=== PATIENT | male | born 1950 | race Caucasian/White ===

== ENCOUNTER 2016-06-25 10:23 | Inpatient (IN) | payer MEDICARE, OTHER ==
[2016-06-25] MEDS ORDERED: DILTIAZEM HCL INJ 25 MG/5 ML VIAL IV ONE ×3 (10:46→21:01)
--- NOTE | 2016-06-25 10:53 | ER Document Report ---
ED General - General Stated Complaint: BLOOD PRESSURE ISSUES Time Seen by Provider: 06/25/16 10:33 Mode of Arrival: Ambulatory Information source: Patient, Relative, DrShalonda Office Notes: 65 yr old male hx of htn presents with complaints of intermittent 3 week duration of palpitations and sob. pt denies any fevers or chills, admits he had productive cough initially. TRAVEL OUTSIDE OF THE [place] IN LAST 30 DAYS: No - HPI Onset: Other Onset/Duration: Intermittent Quality of pain: No pain Severity: Mild Pain Level: 1 Associated symptoms: Productive cough, Shortness of breath Exacerbated by: Walking Relieved by: Denies Similar symptoms previously: No Recently seen / treated by doctor: Yes - sent in by pcp - Related Data Allergies/Adverse Reactions: No Known Drug Allergies Allergy (Verified 04/10/13 12:00) Past Medical History - Social History Smoking Status: Never Smoker Cigarette use (# per day): No Chew tobacco use (# tins/day): No Smoking Education Provided: No Family History: None - Past Medical History Cardiac Medical History: Reports: Hx Hypertension - "CONTROLLED" Denies: Hx Coronary Artery Disease, Hx Heart Attack Pulmonary Medical History: Denies: Hx Asthma, Hx Bronchitis, Hx COPD, Hx Pneumonia Neurological Medical History: Denies: Hx Cerebrovascular Accident, Hx Seizures Endocrine Medical History: Reports: Hx Diabetes Mellitus Type 2 GI Medical History: Reports: Hx Gastroesophageal Reflux Disease Musculoskeltal Medical History: Denies Hx Arthritis Past Surgical History: Reports: Hx Orthopedic Surgery - bilat knee repair - Immunizations Hx Diphtheria, Pertussis, Tetanus Vaccination: Yes Review of Systems - Review of Systems Notes: PHYSICAL EXAMINATION: GENERAL: Well-appearing, well-nourished and in no acute distress. HEAD: Atraumatic, normocephalic. EYES: Pupils equal round and reactive to light, extraocular movements intact, sclera anicteric, conjunctiva are normal. ENT: Nares patent, oropharynx clear without exudates. Moist mucous membranes. NECK: Normal range of motion, supple without lymphadenopathy LUNGS: Breath sounds clear to auscultation bilaterally and equal. No wheezes rales or rhonchi. HEART: Tachycardic irregular rate and rhythm ABDOMEN: Soft, nontender, nondistended abdomen. No guarding, no rebound. No masses appreciated. Musculoskeletal: Normal range of motion, no pitting or edema. No cyanosis. NEUROLOGICAL: Cranial nerves grossly intact. Normal speech, normal gait. Normal sensory, motor exams PSYCH: Normal mood, normal affect. SKIN: Warm, Dry, normal turgor, no rashes or lesions noted. Physical Exam - Vital signs Vitals: Resp Pulse Ox 19 96 06/25/16 10:51 06/25/16 10:51 Course - Re-evaluation Re-evalutation: 06/25/16 10:52 Patient is currently in A. fib intermittently between 140s down to 90s, Cardizem bolus drip ordered a spoke with patient's primary care physician regarding admission here 06/25/16 11:38 pt hr controlled at 82, will admit to hospitalist service 06/25/16 12:08 - Vital Signs Vital signs: Temp Pulse Resp BP Pulse Ox 22 H 104/88 H 96 06/25/16 13:01 06/25/16 13:00 06/25/16 13:01 - Laboratory Result Diagrams: 06/25/16 10:50 06/25/16 10:50 Laboratory results interpreted by me: 06/25/16 06/25/16 10:50 10:50 RDW 14.9 H Sodium 145.5 H BUN 26 H Glucose 141 H Total Bilirubin 1.5 H Direct Bilirubin 0.9 H Alkaline Phosphatase 163 H - EKG Interpretation by Tn EKG shows normal: Sinus rhythm, [place], Intervals, QRS Complexes Rate: Tachycardia Rhythm: A.Fib Critical Care Note - Critical Care Note Total time excluding time spent on procedures (mins): 34 Comments: 34 minutes of critical care time spent in direct contact evaluating and reevaluating the patient, treating symptoms, reviewing labs and studies and speaking with family and consultants excluding any procedures Discharge - Discharge Clinical Impression: Atrial fibrillation with rapid ventricular response, Pleural effusion, Shortness of breath Condition: Stable Disposition: HOME, SELF-CARE Admitting Provider: Hospitalist Unit Admitted: [facility]
[2016-06-25] MEDS: DILTIAZEM HCL/D5W 125 ML IV PRN ×2 (11:10→21:58)
[2016-06-25 11:21] LABS: ABSOLUTE EOSINOPHILS # (AUTO) 0.1 10^3/uL (0.0-0.6); ABSOLUTE MONOCYTES (AUTO) 0.5 10^3/uL (0.1-1.4); ABSOLUTE NEUT (AUTO) 3.5 10^3/uL (1.7-8.2); BASOPHILS % (AUTO) 0.8 % (0-2); EOSINOPHILS % (AUTO) 2.2 % (0-6); HEMATOCRIT 43.6 % (37.9-51.0); HEMOGLOBIN 14.2 g/dL (13.5-17.0); LYMPHOCYTES % (AUTO) 19.9 % (13-45); MEAN CORPUSCULAR HEMOGLOBIN 30.9 pg (27.0-33.4); MEAN CORPUSCULAR HGB CONC 32.5 g/dL (32.0-36.0); MEAN CORPUSCULAR VOLUME 95 fl (80-97); MONOCYTES % (AUTO) 9.4 % (3-13); RED BLOOD COUNT 4.59 10^6/uL (4.35-5.55); RED CELL DISTRIBUTION WIDTH 14.9 % (11.5-14.0); SEGMENTED NEUTROPHILS % (AUTO) 67.7 % (42-78); WHITE BLOOD COUNT 5.2 10^3/uL (4.0-10.5)
[2016-06-25] MEDS ORDERED: NORMAL SALINE 1000 ML 1,000 ML IV ONE (11:28)
[2016-06-25 11:40] LABS: ALANINE AMINOTRANSFERASE 27 U/L (21-72); ALBUMIN 4.4 g/dL (3.5-5.0); ALKALINE PHOSPHATASE 163 U/L (38-126); ANION GAP 12 (5-19); ASPARTATE AMINO TRANSFERASE 34 U/L (17-59); BILIRUBIN,DIRECT 0.9 mg/dL (0.0-0.4); BILIRUBIN,TOTAL 1.5 mg/dL (0.2-1.3); BLOOD UREA NITROGEN 26 mg/dL (7-20); CALCIUM 9.9 mg/dL (8.4-10.2); CARBON DIOXIDE 28 mmol/L (22-30); CHLORIDE 106 mmol/L (98-107); CREATINE KINASE 83 U/L (55-170); GLUCOSE 141 mg/dL (75-110); SODIUM 145.5 mmol/L (137-145); TOTAL PROTEIN 7.6 g/dL (6.3-8.2)
[2016-06-25 11:50] LABS: CREATINE KINASE MB 2.61 ng/mL (<4.55)
[2016-06-25 11:52] LABS: TROPONIN I < 0.012 ng/mL
[2016-06-25] MEDS ORDERED: ENOXAPARIN SODIUM INJ 120 MG/0.8 ML DISP.SYRIN SUBCUT ONE (15:30)
[2016-06-25] MEDS ORDERED: INSULIN LISPRO 100 UNIT/ML 3 ML VIAL SUBCUT PRN (16:01)
[2016-06-25] MEDS ORDERED: DEXTROSE 40% GEL 15 GM TUBE PO PRN ×2 (16:01)
[2016-06-25] MEDS ORDERED: DEXTROSE 50%-WATER 25 GM/50 ML DISP.SYRIN IV PRN ×2 (16:01)
[2016-06-25] MEDS ORDERED: GLUCAGON,HUMAN RECOMB 1 MG INJ IM PRN (16:01)
--- NOTE | 2016-06-25 16:04 | PDOC H&P ---
History of Present Illness Admission Date/PCP: 06/25/16 13:25 KWABENA KIM MD Patient complains of: Blood pressure issues History of Present Illness: KEE GRAVES is a 65 year old male with a past medical history of hypertension and diabetes mellitus type II. Patient presented to the emergency department from his primary care provider's office with EKG findings suggestive of atrial fibrillation which is new to this patient. The patient provides a history of intermittent 3 week duration of palpitations and shortness of breath which prompted him to go to his primary care provider's office. The patient was also noted to have Roxanol nocturnal dyspnea. Patient also notes bilateral lower extremity edema. Symptoms initially began as the patient was chopping wood. Patient denies any fevers or chills, admits he had productive cough initially. Upon presentation the patient was found to be in A. fib intermittently between 140s down to 90s, Cardizem bolus drip was given by the ER physician. The patient underwent CTA of the chest and was noted to have significant pleural effusion. And the patient was referred to the hospitalist remission and management. MEDICATIONS: The medications listed in this document may have been auto- populated from previous contact and may not been verified or reconciled. This may not be an accurate reflection of the patient's home medication(s); however, authors are unable to edit or delete the medications listed in this document as "home medications". Past Medical History Cardiac Medical History: Reports: Hyperlipidema, Hypertension Endocrine Medical History: Reports: Diabetes Mellitus Type 2 GI Medical History: Reports: Gastroesophageal Reflux Disease Past Surgical History Past Surgical History: Reports: Appendectomy, Orthopedic Surgery - bilat knee repair Social History Information Source: Patient, Relative Occupation: [employer] C[employer] Lives with: Spouse/Significant other Smoking Status: Former Smoker Cigarettes Packs Per Day: 1 Last Time Smoked: 1976 Frequency of Alcohol Use: Occasional Hx Recreational Drug Use: No Hx Prescription Drug Abuse: No - Advance Directive Resuscitation Status: Full Code Surrogate healthcare decision maker:: Spouse Family History Family History: None Parental Family History Reviewed: Yes Children Family History Reviewed: Yes Sibling(s) Family History Reviewed.: Yes Medication/Allergy Allergies/Adverse Reactions: No Known Drug Allergies Allergy (Verified 04/10/13 12:00) Review of Systems Constitutional: ABSENT: chills, fever(s), headache(s), weight gain, weight loss Eyes: ABSENT: visual disturbances Ears: ABSENT: hearing changes Cardiovascular: PRESENT: dyspnea on exertion, orthropnea, palpitations. ABSENT : chest pain, edema Respiratory: PRESENT: cough. ABSENT: hemoptysis Gastrointestinal: ABSENT: abdominal pain, constipation, diarrhea, hematemesis, hematochezia, nausea, vomiting Genitourinary: ABSENT: dysuria, hematuria Musculoskeletal: ABSENT: joint swelling Integumentary: ABSENT: rash, wounds Neurological: ABSENT: abnormal gait, abnormal speech, confusion, dizziness, focal weakness, syncope Psychiatric: ABSENT: anxiety, depression, homidical ideation, suicidal ideation Endocrine: ABSENT: cold intolerance, heat intolerance, polydipsia, polyuria Hematologic/Lymphatic: ABSENT: easy bleeding, easy bruising Physical Exam Vital Signs: Temp Pulse Resp BP Pulse Ox 28 H 115/83 94 06/25/16 15:15 06/25/16 15:15 06/25/16 15:15 General appearance: PRESENT: no acute distress, well-developed, well-nourished Head exam: PRESENT: atraumatic, normocephalic Eye exam: PRESENT: conjunctiva pink, EOMI, PERRLA. ABSENT: scleral icterus Ear exam: PRESENT: normal external ear exam Mouth exam: PRESENT: moist, tongue midline Neck exam: ABSENT: carotid bruit, JVD, lymphadenopathy, thyromegaly Respiratory exam: PRESENT: clear to auscultation sudhakar. ABSENT: rales, rhonchi, wheezes Cardiovascular exam: PRESENT: RRR. ABSENT: diastolic murmur, rubs, systolic murmur Pulses: PRESENT: +1 pedal pulses bilateral Vascular exam: PRESENT: normal capillary refill GI/Abdominal exam: PRESENT: normal bowel sounds, soft. ABSENT: distended, guarding, mass, organolmegaly, rebound, tenderness Rectal exam: PRESENT: deferred Extremities exam: PRESENT: full ROM, +2 edema - Bilateral lower extremity. ABSENT: calf tenderness, clubbing, pedal edema Neurological exam: PRESENT: alert, awake, oriented to person, oriented to place , oriented to time, oriented to situation, CN II-XII grossly intact. ABSENT: motor sensory deficit Psychiatric exam: PRESENT: appropriate affect, normal mood. ABSENT: homicidal ideation, suicidal ideation Skin exam: PRESENT: dry, intact, warm. ABSENT: cyanosis, rash Results Laboratory Results: Labs- Last Values WBC 5.2 10^3/uL (4.0-10.5) 06/25/16 10:50 RBC 4.59 10^6/uL (4.35-5.55) 06/25/16 10:50 Hgb 14.2 g/dL (13.5-17.0) 06/25/16 10:50 Hct 43.6 % (37.9-51.0) 06/25/16 10:50 MCV 95 fl (80-97) 06/25/16 10:50 MCH 30.9 pg (27.0-33.4) 06/25/16 10:50 MCHC 32.5 g/dL (32.0-36.0) 06/25/16 10:50 RDW 14.9 % (11.5-14.0) H 06/25/16 10:50 Plt Count 152 10^3/uL (150-450) 06/25/16 10:50 Seg Neutrophils % 67.7 % (42-78) 06/25/16 10:50 Lymphocytes % 19.9 % (13-45) 06/25/16 10:50 Monocytes % 9.4 % (3-13) 06/25/16 10:50 Eosinophils % 2.2 % (0-6) 06/25/16 10:50 Basophils % 0.8 % (0-2) 06/25/16 10:50 Absolute Neutrophils 3.5 10^3/uL (1.7-8.2) 06/25/16 10:50 Absolute Lymphocytes 1.0 10^3/uL (0.5-4.7) 06/25/16 10:50 Absolute Monocytes 0.5 10^3/uL (0.1-1.4) 06/25/16 10:50 Absolute Eosinophils 0.1 10^3/uL (0.0-0.6) 06/25/16 10:50 Absolute Basophils 0.0 10^3/uL (0.0-0.2) 06/25/16 10:50 Sodium 145.5 mmol/L (137-145) H 06/25/16 10:50 Potassium 5.0 mmol/L (3.6-5.0) 06/25/16 10:50 Chloride 106 mmol/L (98-107) 06/25/16 10:50 Carbon Dioxide 28 mmol/L (22-30) 06/25/16 10:50 Anion Gap 12 (5-19) 06/25/16 10:50 BUN 26 mg/dL (7-20) H 06/25/16 10:50 Creatinine 1.00 mg/dL (0.52-1.25) 06/25/16 10:50 Est GFR ( Amer) > 60 (>60) 06/25/16 10:50 Est GFR (Non-Af Amer) > 60 (>60) 06/25/16 10:50 Glucose 141 mg/dL (75-110) H 06/25/16 10:50 Calcium 9.9 mg/dL (8.4-10.2) 06/25/16 10:50 Total Bilirubin 1.5 mg/dL (0.2-1.3) H 06/25/16 10:50 Direct Bilirubin 0.9 mg/dL (0.0-0.4) H 06/25/16 10:50 Indirect Bilirubin Not Reportable 06/25/16 10:50 Neonat Total Bilirubin Not Reportable 06/25/16 10:50 AST 34 U/L (17-59) 06/25/16 10:50 ALT 27 U/L (21-72) 06/25/16 10:50 Alkaline Phosphatase 163 U/L (38-126) H 06/25/16 10:50 Creatine Kinase 83 U/L (55-170) 06/25/16 10:50 CK-MB (CK-2) 2.61 ng/mL (<4.55) 06/25/16 10:50 Troponin I < 0.012 ng/mL 06/25/16 10:50 Total Protein 7.6 g/dL (6.3-8.2) 06/25/16 10:50 Albumin 4.4 g/dL (3.5-5.0) 06/25/16 10:50 TSH 2.09 uIU/mL (0.47-4.68) 06/25/16 10:50 Impressions: Chest/Abdomen CTA 06/25/16 10:46 IMPRESSION: 1. There is no evidence of pulmonary emboli. 2. There is considerable right pleural effusion with associated compressive atelectasis in the right lower lobe. There is a small left pleural effusion. 3. There are nonspecific mediastinal nodes. 4. There is a small amount of ascites. Assessment & Plan - Diagnosis (1) Atrial fibrillation with RVR Is this a current diagnosis for this admission?: YesPlan: Continue Cardizem drip. Will anticoagulate the patient. Will consult Dr. Anaya with cardiology. The patient states that this is a new diagnosis for him. The patient denies any recent acute in illness. For echo to cardiology. (2) Acute systolic (congestive) heart failure Is this a current diagnosis for this admission?: YesPlan: This is secondary to #1. Will diurese the patient placed potassium. Will defer echo to cardiology. (3) Pleural effusion Is this a current diagnosis for this admission?: YesPlan: Secondary to the above. The patient is not currently hypoxic. Will diurese the patient from failure due to rapid ventricular response and monitor. Will defer thoracentesis until necessary. (4) Hypertension Qualifiers: Hypertension type: essential hypertension Qualified Code(s): I10 - Essential (primary) hypertension Is this a current diagnosis for this admission?: YesPlan: Blood pressures been in a good range will continue current medications. (5) Diabetes mellitus type 2 in nonobese Is this a current diagnosis for this admission?: YesPlan: Will continue sliding scale coverage as well as home medications. (6) Hyperlipidemia Qualifiers: Hyperlipidemia type: unspecified Qualified Code(s): E78.5 - Hyperlipidemia, unspecified Is this a current diagnosis for this admission?: YesPlan: Will continue statin (7) Gastroesophageal reflux disease Qualifiers: Esophagitis presence: without esophagitis Qualified Code(s): K21.9 - Gastro-esophageal reflux disease without esophagitis Plan: Will continue PPI therapy - Time Time Spent: 50 to 70 Minutes Medications reviewed and adjusted accordingly: Yes Anticipated discharge: Home Within: within 48 hours Disposition: on this visit including admission including assessment, plan, physical examination, family meeting, and specialty collaboration, and patient education is 60 minutes. - Inpatient Certification Based on my medical assessment, after consideration of the patient's comorbidities, presenting symptoms, or acuity I expect that the services needed warrant INPATIENT care.: Yes I certify that my determination is in accordance with my understanding of Medicare's requirements for reasonable and necessary INPATIENT services [42 CFR 412.3e].: Yes Medical Necessity: Need Close Monitoring Due to Risk of Patient Decompensation, Need For Continuous Telemetry Monitoring, Risk of Complication if Not Cared For in Hospital Post Hospital Care: D/C or Transfer Summary
[2016-06-25] MEDS ORDERED: POTASSIUM CHLORIDE 10 MEQ TABLET.SA PO ONE ×2 (16:30→17:14)
[2016-06-25] MEDS ORDERED: FUROSEMIDE INJ/PF 40 MG/4 ML SDV IV ONE ×2 (16:30→20:30)
[2016-06-25] MEDS: ENOXAPARIN SODIUM INJ 120 MG/0.8 ML DISP.SYRIN SUBCUT SCH (21:10)
[2016-06-25] MEDS: FUROSEMIDE INJ/PF 40 MG/4 ML SDV IV SCH (21:14)
--- NOTE | 2016-06-25 21:24 | PDOC CONSULTATION ---
Consultation Consult Date: 06/25/16 Attending physician:: EARL STEWART Consult reason:: Atrial flutter with rapid ventricular response and CHF History of Present Illness Admission Date/PCP: 06/25/16 13:25 KWABENA KIM MD Patient complains of: Dyspnea, fatigue and tiredness History of Present Illness: KEE GRAVES is a 65 year old male with a past medical history of hypertension and diabetes mellitus type II. Patient presented to the emergency department from his primary care provider's office with EKG findings suggestive of atrial fibrillation which is new to this patient. The patient provides a history of intermittent 3 week duration of palpitations and shortness of breath which prompted him to go to his primary care provider's office. The patient was also noted to have Roxanol nocturnal dyspnea. Patient also notes bilateral lower extremity edema. Symptoms initially began as the patient was chopping wood. Patient denies any fevers or chills, admits he had productive cough initially. Upon presentation the patient was found to be in A. fib intermittently between 140s down to 90s, Cardizem bolus drip was given by the ER physician. The patient underwent CTA of the chest and was noted to have significant pleural effusion. And the patient was referred to the hospitalist remission and management. I was asked to evaluate patient because it was difficult to control his heart rate and presumably new onset atrial flutter fibrillation. This history was obtained, supplemented and confirmed. I did interview patient's . Patient claims that his been having irregular and rapid heart beat off and on for last 3 weeks. Patient also has noted increasing shortness of breath and pedal edema. Patient however denied any chest pain. He has also noted progressive fatigue for last several months. Patient does give a history of snoring. Past Medical History Cardiac Medical History: Reports: Hyperlipidema, Hypertension Denies: Coronary Artery Disease, Myocardial Infarction Pulmonary Medical History: Denies: Asthma, Bronchitis, Chronic Obstructive Pulmonary Disease (COPD), Pneumonia Neurological Medical History: Denies: Seizures Endocrine Medical History: Reports: Diabetes Mellitus Type 2 GI Medical History: Reports: Gastroesophageal Reflux Disease Musculoskeltal Medical History: Denies: Arthritis Hematology: Denies: Anemia Past Surgical History Past Surgical History: Reports: Appendectomy, Orthopedic Surgery - bilat knee repair Social History Information Source: Patient Lives with: Spouse/Significant other Smoking Status: Former Smoker Cigarettes Packs Per Day: 1 Number of Years Smokin Last Time Smoked: 04/19/1976 Frequency of Alcohol Use: Occasional Hx Recreational Drug Use: No Drugs: None Hx Prescription Drug Abuse: No - Advance Directive Resuscitation Status: Full Code Family History Family History: None Parental Family History Reviewed: Yes Children Family History Reviewed: Yes Sibling(s) Family History Reviewed.: Yes Medication/Allergy Home Medications: Aspirin [Aspirin EC] 81 mg PO DAILY 06/25/16 Fluticasone Propionate [Flonase Nasal Rea 50 Mcg/Rea 16 gm] 2 spray NASL DAILY 06/25/16 Gemfibrozil [Lopid 600 mg Tablet] 600 mg PO BID 06/25/16 Lisinopril [Prinivil 5 mg Tablet] 5 mg PO DAILY 06/25/16 Metformin HCl [Glucophage] 500 mg PO BID 06/25/16 Metoprolol Succinate [Toprol Xl 25 mg Tab.sr] 25 mg PO DAILY 06/25/16 Pantoprazole Sodium [Protonix] 40 mg PO DAILY 06/25/16 Sildenafil Citrate [Viagra] 100 mg PO DAILYP PRN 06/25/16 Allergies/Adverse Reactions: No Known Drug Allergies Allergy (Verified 04/10/13 12:00) Review of Systems Review of Systems: Please see history of present illness and past medical history as wall. Constitutional: No fever or chills reported. Progressive fatigue and tiredness. Head : No recent chronic headaches, recent head injury. Eyes: No recent eye pain, diplopia, redness, discharge, acute visual changes. Ears: No recent chronic ear pain, acute hearing loss, ear discharge. Oral cavity: No recent ulcerations, bleeding, oral cavity discomfort. Neck: No recent acute neck pain reported. Hematologic: No recent easy bruising or bleeding or hematologic malignancy reported. Lymphatic: No recent lymphatic malignancy, chronic lymphadenopathy reported yet Cardiovascular system review: See history of present illness. Respiratory system review: No recent chronic cough, hemoptysis, blood clots in the lungs reported. Mild Shortness of breath on exertion. Recent nonproductive cough Gastrointestinal system review: Negative for any recent acute or chronic abdominal pain, hematemesis, melena, recent change in bowel habits. Genitourinary system review: No recent acute or chronic hematuria, flank pain, UTI etc. reported. Skin system review: Negative for any recent abnormal bruising, no rash, no pruritus reported. Increasing pedal edema noted Neurologic: No prior history of strokes, mini strokes, seizure disorder. Psychologic: No history of major psychosis or major depression reported. Musculoskeletal: Minor aches and pains reported. No acute joint swelling reported. Endocrine: No recent polyuria, polydipsia, recent heat or cold intolerance. Physical Exam Vital Signs: Temp Pulse Resp BP Pulse Ox 97.6 F 94 18 108/86 H 97 06/25/16 16:25 06/25/16 17:00 06/25/16 16:25 06/25/16 18:36 06/25/16 16:25 Intake & Output 06/24/16 06/25/16 06/26/16 06:59 06:59 06:59 Intake Total 200 Balance 200 Weight 116.6 kg Exam: GENERAL: well-nourished and in no acute distress. Alert and oriented x3 HEAD: Atraumatic, normocephalic. EYES: Pupils equal round and reactive to light, extraocular movements intact, sclera anicteric, conjunctiva are normal. ENT: TMs normal, nares patent, oropharynx clear without exudates. Moist mucous membranes. No oral ulcerations or bleeding gums noted NECK: supple without lymphadenopathy. Trachea is central. No cervical or axillary lymphadenopathy noted. Carotids are 2+, JVD WNL LUNGS: Respiration seems nonlabored, no significant accessory muscle action noted. Breath sounds diminished bilaterally with bibasilar crackles. Bilateral dullness noted at the bases. CHEST: Palpation of the chest wall shows no significant chest wall tenderness. No other significant abnormalities noted. HEART: [employer], No PSH, 1/6 PERRY aortic area, 1/6 [place] systolic murmur mitral area, no rubs, no gallops. ABDOMEN: Soft, no significant tenderness appreciated, normoactive bowel sounds. No guarding, no rebound. No rigidity noted . No masses appreciated. EXTREMITIES: Pedal pulses are 1-2+, no calf tenderness noted. No clubbing or cyanosis.2 + pedal edema noted NEUROLOGICAL: Focused neurological exam showed no significant neurologic deficit. Normal speech, no focal weakness appreciated. PSYCH: Normal mood, normal affect. Judgment and insight within normal limits. SKIN: No significant ecchymosis, rash, ulcerations or signs of pruritus noted. MUSCULOSKELETAL EXAM: No significant joint swelling noted. Results EKG Comments: Atrial flutter with rapid ventricular response Impressions: Chest/Abdomen CTA 06/25/16 10:46 IMPRESSION: 1. There is no evidence of pulmonary emboli. 2. There is considerable right pleural effusion with associated compressive atelectasis in the right lower lobe. There is a small left pleural effusion. 3. There are nonspecific mediastinal nodes. 4. There is a small amount of ascites. Assessment & Plan - Diagnosis (1) Atrial fibrillation with RVR Is this a current diagnosis for this admission?: Yes (2) Congestive heart failure Qualifiers: Congestive heart failure type: unspecified congestive heart failure type Congestive heart failure chronicity: acute Qualified Code(s): I50.9 - Heart failure, unspecified Is this a current diagnosis for this admission?: Yes (3) Hypertension Qualifiers: Hypertension type: essential hypertension Qualified Code(s): I10 - Essential (primary) hypertension Is this a current diagnosis for this admission?: Yes (4) Pleural effusion Is this a current diagnosis for this admission?: Yes (5) Diabetes mellitus type 2 in nonobese Is this a current diagnosis for this admission?: Yes (6) Hyperlipidemia Qualifiers: Hyperlipidemia type: unspecified Qualified Code(s): E78.5 - Hyperlipidemia, unspecified Is this a current diagnosis for this admission?: Yes - Notes Notes: Atrial fibrillation with rapid ventricular response: Patient also has flutter with 2 to one intermittently. This is making heart rate difficult to control. Patient also had somewhat of a low blood pressure. Currently continue Cardizem drip. Have discussed case with Dr. Sin [place]. He has kindly accepted the patient in transfer. He plans on doing transesophageal echocardiogram and either ablation or cardioversion tomorrow. Congestive heart failure: Acute most likely precipitated by atrial fibrillation. Continue IV Lasix. Hypertension: Currently stable. Pleural effusion: Related to CHF. Diabetes: Stable Dyslipidemia: Stable. - Time Time Spent: 50 to 70 Minutes - Significant time spent discussing transfer, management of atrial flutter fibrillation.CODE STATUS was discussed, patient remains full code. Surrogate decision-maker patient's . Multiple medical problems were addressed.More than 50% of the time spent coordinating care, discussing management plans with involved caregivers. Management plans discussed with involved personnels. Medical decision making was of moderate to high complexity, patient's has multiple severe comorbidities. Medications reviewed and adjusted accordingly: Yes
[2016-06-25] MEDS ORDERED: DILTIAZEM HCL/D5W 125 MG/125 ML RTUINJ IV ONE (21:50)
--- NOTE | 2016-06-25 22:11 | EKG REPORT ---
SEVERITY:- ABNORMAL ECG - ATRIAL FIBRILLATION WITH RAPID V-RATE BORDERLINE LEFT AXIS DEVIATION BORDERLINE R WAVE PROGRESSION, ANTERIOR LEADS : Confirmed by: Danna Garcia MD 25-Jun-2016 22:11:05
--- NOTE | 2016-06-25 22:11 | EKG REPORT ---
SEVERITY:- ABNORMAL ECG - A-FLUTTER W/ VARIED AV BLOCK, A-RATE 333 VENTRICULAR PREMATURE COMPLEX : Confirmed by: Danna Garcia MD 25-Jun-2016 22:10:59
[2016-06-25 22:49] LABS: ANION GAP 14 (5-19); BLOOD UREA NITROGEN 22 mg/dL (7-20); CALCIUM 9.8 mg/dL (8.4-10.2); CARBON DIOXIDE 26 mmol/L (22-30); CHLORIDE 106 mmol/L (98-107); CREATININE RESULT 1.05 mg/dL (0.52-1.25); GLUCOSE 105 mg/dL (75-110); MAGNESIUM 1.9 mg/dL (1.6-2.3); POTASSIUM 4.1 mmol/L (3.6-5.0); SODIUM 145.7 mmol/L (137-145)
--- NOTE | 2016-06-25 23:18 | PDOC TRANSFER SUMMARY ---
General Admission Date/PCP: 06/25/16 13:25 KWABENA KIM MD Resuscitation Status: Full Code - Transfer Diagnosis (2) Acute systolic (congestive) heart failure Is this a current diagnosis for this admission?: Yes (3) Atrial fibrillation with RVR Is this a current diagnosis for this admission?: Yes (4) Pleural effusion Is this a current diagnosis for this admission?: Yes - Transfer Medications Home Medications: Aspirin [Aspirin EC] 81 mg PO DAILY 06/25/16 Fluticasone Propionate [Flonase Nasal [place] 50 Mcg/[place] 16 gm] 2 spray NASL DAILY 06/25/16 Gemfibrozil [Lopid 600 mg Tablet] 600 mg PO BID 06/25/16 Lisinopril [Prinivil 5 mg Tablet] 5 mg PO DAILY 06/25/16 Metformin HCl [Glucophage] 500 mg PO BID 06/25/16 Metoprolol Succinate [Toprol Xl 25 mg Tab.sr] 25 mg PO DAILY 06/25/16 Pantoprazole Sodium [Protonix] 40 mg PO DAILY 06/25/16 Sildenafil Citrate [Viagra] 100 mg PO DAILYP PRN 06/25/16 Transfer Medications: Current Medications Dextrose (Dextrose Inj 50% Syringe (25 Gm/50 Ml)) 12.5 gm IV PRN PRN; Protocol PRN Reason: FOR BG 50-69 IN ALERT PATIENT Stop: 07/25/16 16:00 Dextrose (Dextrose Inj 50% Syringe (25 Gm/50 Ml)) 25 gm IV PRN PRN PRN Reason: Protocol Stop: 07/25/16 16:00 Enoxaparin Sodium (Lovenox Inj 120 Mg/0.8 Ml Disp.Syrin) 110 mg SUBCUT Q12 NEPTALI Stop: 07/25/16 21:59 Last Admin: 06/25/16 21:10 Dose: 110 mg Furosemide (Lasix Inj/Pf 40 Mg/4 Ml Sdv) 40 mg IV Q12@0800,2000 [facility] Stop: 07/25/16 19:59 Last Admin: 06/25/16 21:14 Dose: Not Given Glucagon (Glucagen Inj 1 Mg Vial) 1 mg IM PRN PRN; Protocol PRN Reason: Evaluate for BG < 70 Stop: 07/25/16 16:00 Glucose (Glutose 40% Gel 15 Gm Tube) 15 gm PO PRN PRN; Protocol PRN Reason: FOR BG 50-69 IN ALERT PATIENT Stop: 07/25/16 16:00 Glucose (Glutose 40% Gel 15 Gm Tube) 30 gm PO PRN PRN; Protocol PRN Reason: FOR BG < 50 IN ALERT PATIENT Stop: 07/25/16 16:00 Diltiazem HCl (Cardizem Rtu Inj 125 Mg-D5w 125 Ml Premix) 125 mls @ 0 mls/hr IV CONTINUOUS PRN; Protocol; Titrate PRN Reason: THIS MED IS NOT "PRN" Stop: 07/25/16 10:45 Last Admin: 06/25/16 21:58 Dose: 125 ml Insulin Human Lispro (Humalog Insulin 100 Unit/1 Ml 3 Ml Vial) 0 - 12 unit SUBCUT ACHSP PRN PRN Reason: Protocol Stop: 07/25/16 16:00 Sodium Chloride (Saline Flush 2.5 Ml Monoject Prefil Syrin) 2.5 ml IV Q8 NEPTALI Stop: 07/25/16 21:59 Last Admin: 06/25/16 21:11 Dose: 2.5 ml - Allergies Allergies/Adverse Reactions: No Known Drug Allergies Allergy (Verified 04/10/13 12:00) Hospital Course Hospital Course: 06/25/2016: Please refer to initial history and physical, along with cardiology consult. Cardiology has recommended transfer to tertiary center. Electronic Publishing Specialist has discussed with Dr. Sin Dallas, oriental rug stretcher at [facility], who has graciously accepted the patient in transfer. We are awaiting transport. Stable for transport. Remains on Cardizem drip. Overall ventricular rate gradually trending downward into an acceptable range. Occasional brief spikes into the 160 range, but overall downward trend. Patient and are aware of plans and both agree. at patient's bedside with his approval. Patient is Awake alert pleasant and cooperative. Mildly anxious, without agitation. Physical Exam Vital Signs: Temp Pulse Resp BP Pulse Ox 98.4 F 83 20 109/82 97 06/25/16 20:57 06/25/16 20:57 06/25/16 20:03 06/25/16 20:03 06/25/16 20:57 Intake & Output 06/24/16 06/25/16 06/26/16 00:59 00:59 00:59 Intake Total 200 Balance 200 Weight 116.6 kg Results Laboratory Results: 06/25/16 22:28 06/25/16 22:28 Sodium 145.7 H Potassium 4.1 Chloride 106 Carbon Dioxide 26 Anion Gap 14 BUN 22 H Creatinine 1.05 Est GFR ( Amer) > 60 Est GFR (Non-Af Amer) > 60 Glucose 105 Calcium 9.8 Magnesium 1.9 Impressions: Chest/Abdomen CTA 06/25/16 10:46 IMPRESSION: 1. There is no evidence of pulmonary emboli. 2. There is considerable right pleural effusion with associated compressive atelectasis in the right lower lobe. There is a small left pleural effusion. 3. There are nonspecific mediastinal nodes. 4. There is a small amount of ascites.
[2016-06-26] MEDS ORDERED: ACETAMINOPHEN 325 MG TABLET PO PRN (01:11)
[2016-06-26] MEDS ORDERED: ACETAMINOPHEN 325 MG TABLET ONE (01:27)
[2016-06-26 03:50] VITALS: BP 87/52
[2016-06-26] MEDS: FUROSEMIDE INJ/PF 40 MG/4 ML SDV IV SCH (08:00)
[2016-06-26] MEDS: ENOXAPARIN SODIUM INJ 120 MG/0.8 ML DISP.SYRIN SUBCUT SCH (10:00)
[2016-06-26] MEDS ORDERED: DIGOXIN INJ 0.5 MG/2 ML AMPULE ONE (10:31)
--- NOTE | 2016-06-26 20:50 | PDOC PROGRESS REPORT ---
Subjective Progress Note for:: 06/26/16 Subjective:: Patient was seen in the morning. He was noted to be in persistent atrial flutter with atypical. His heart rate has been difficult to control through the night. He developed hypotension, which gradually tapering and subsequent discontinuation of Cardizem drip. When I saw him in the morning his heart rate was between 130 and 1 40 bpm. I ordered IV digoxin 0.25 mg 1 dose. I was told by the nurses that he is on waiting list to go to the [facility] echocardiogram, ablation versus cardioversion. Patient still agreeable to be transferred. Patient had significant diuresis with IV Lasix and had apparently lost about 4000 mL of urine. Physical Exam Vital Signs: Temp Pulse Resp BP Pulse Ox 97.8 F 83 20 87/52 L 94 06/26/16 03:23 06/26/16 03:23 06/26/16 03:23 06/26/16 03:46 06/26/16 03:46 Intake & Output 06/25/16 06/26/16 06/27/16 06:59 06:59 06:59 Intake Total 422 Output Total 1925 Balance -1503 Weight 116.6 kg Exam: GENERAL: well-nourished and in no acute distress. Alert and oriented x3 HEAD: Atraumatic, normocephalic. EYES: Pupils equal round and reactive to light, extraocular movements intact, sclera anicteric, conjunctiva are normal. ENT: TMs normal, nares patent, oropharynx clear without exudates. Moist mucous membranes. No oral ulcerations or bleeding gums noted NECK: supple without lymphadenopathy. Trachea is central. No cervical or axillary lymphadenopathy noted. Carotids are 2+, JVD 8-10 cm LUNGS: Respiration seems nonlabored, no significant accessory muscle action noted. Lung exam shows better than yesterday. Bases are still dull to percussion but less so than yesterday. CHEST: Palpation of the chest wall shows no significant chest wall tenderness. No other significant abnormalities noted. HEART: [place] IT COMMUNICATIONS SPECIALIST, No PSH, 1/6 PERRY aortic area, 1/6 [place] systolic murmur mitral area, no rubs, no gallops. ABDOMEN: Soft, no significant tenderness appreciated, normoactive bowel sounds. No guarding, no rebound. No rigidity noted . No masses appreciated. EXTREMITIES: Pedal pulses are 1-2+, no calf tenderness noted. No clubbing or cyanosis. 1+ pedal edema noted NEUROLOGICAL: Focused neurological exam showed no significant neurologic deficit. Normal speech, no focal weakness appreciated. PSYCH: Normal mood, normal affect. Judgment and insight within normal limits. SKIN: No significant ecchymosis, rash, ulcerations or signs of pruritus noted. MUSCULOSKELETAL EXAM: No significant joint swelling noted. Results Laboratory Results: 06/25/16 22:28 06/25/16 22:28 Sodium 145.7 H Potassium 4.1 Chloride 106 Carbon Dioxide 26 Anion Gap 14 BUN 22 H Creatinine 1.05 Est GFR ( Amer) > 60 Est GFR (Non-Af Amer) > 60 Glucose 105 Calcium 9.8 Magnesium 1.9 Impressions: Chest/Abdomen CTA 06/25/16 10:46 IMPRESSION: 1. There is no evidence of pulmonary emboli. 2. There is considerable right pleural effusion with associated compressive atelectasis in the right lower lobe. There is a small left pleural effusion. 3. There are nonspecific mediastinal nodes. 4. There is a small amount of ascites. Assessment & Plan - Diagnosis (1) Atrial fibrillation with RVR Is this a current diagnosis for this admission?: Yes (2) Congestive heart failure Qualifiers: Congestive heart failure type: unspecified congestive heart failure type Congestive heart failure chronicity: acute Qualified Code(s): I50.9 - Heart failure, unspecified Is this a current diagnosis for this admission?: Yes (3) Hypertension Qualifiers: Hypertension type: essential hypertension Qualified Code(s): I10 - Essential (primary) hypertension Is this a current diagnosis for this admission?: Yes (4) Pleural effusion Is this a current diagnosis for this admission?: Yes (5) Diabetes mellitus type 2 in nonobese Is this a current diagnosis for this admission?: Yes (6) Hyperlipidemia Qualifiers: Hyperlipidemia type: unspecified Qualified Code(s): E78.5 - Hyperlipidemia, unspecified Is this a current diagnosis for this admission?: Yes - Notes Notes: Atrial fibrillation flutter with RVR: Heart rate has been difficult to control. It is felt that the best option is either cardioversion or ablation. Patient would need chronic anticoagulation this last explained. Side effects of chronic anticoagulation was discussed. Congestive heart failure: 2D echo is pending. Most likely related to atrial fibrillation and possible systolic and/or diastolic dysfunction or in combination. Continue diuretic therapy. Patient will benefit from salt and fluid restriction. Hypertension: Reasonably well controlled. Blood pressure goal in this patient is 135/85 or less. This was discussed with the patient. Currently blood pressure under reasonable control. Better medication for this patient are TALHA inhibitor/ARB/beta hector etc. discussed side effects of uncontrolled hypertension and also severe hypotension. Diabetes: Recommend good control of blood sugar. However should avoid any hypoglycemia. Patient being expertly managed by primary care M.Cornelius. Hyperlipidemia: LDL goal is less than 70. Recommend statin therapy at least intermediate or high dose, of high potency status. Periodic lipid panel and liver panel is indicated. Patient to report any significant muscle discomfort or other side effects. Discussed association of sleep apnea with development of atrial fibrillation and also association of sleep apnea with diabetes and hypertension. Also on exam patient noted to have high arched palate. Patient was strongly recommended to pursue a sleep study. Approximately 45 minutes spent today discussing management plans for atrial flutter fibrillation, risk benefits of chronic anticoagulation, discussion of various procedures that will be performed. Patient can follow-up with me. Patient to report any further problems. - Time Time with patient: Greater than 35 minutes - CODE STATUS was discussed, patient remains full code. Surrogate decision-maker patient patient's spouse. Multiple medical problems were addressed. More than 50% of the time spent coordinating care, discussing management plans with involved caregivers. Management plans discussed with involved personnels. Medical decision making was of moderate to high complexity, patient's has multiple severe comorbidities. Medications reviewed and adjusted accordingly: Yes
--- NOTE | 2016-06-26 23:33 | PROGRESS NOTE E ---
Progress Note NAME: KEE GRAVES : 1950 AGE: 65Y DATE: 06/26/2016 ROOM: 334 SUBJECTIVE: The patient is lying in bed. He is currently awaiting transfer to [facility]. The patient was seen by Cardiology overnight and given the patient's A-flutter, it was felt that he would benefit from MARY. The patient has been accepted under the services of Dr. Dallas, manager of allied health services, at [facility]. The patient, though, denies any nausea, vomiting, diarrhea. No shortness of breath or dizziness. No chest pain. No fevers or chills. Heart palpitations have been intermittent, but overall improved. The patient has diuresed relatively well and the patient does not voice any other concerns at this time. REVIEW OF SYSTEMS: The rest of the review of systems is negative. MEDICATIONS: Medications have been reviewed. OBJECTIVE: GENERAL: The patient is a 65-year-old male which is awake, alert, and oriented to person, place, time, and situation. He is verbal, conversational, ambulatory, and does not appear to be in any acute distress. VITAL SIGNS: Temperature is 98.0, pulse is 101, respirations 20, blood pressure is 130/53, oxygen saturation is 98% on room air. SKIN: Warm and dry. There is no rash. He is not diaphoretic. HEENT: Pupils equal, round and reactive to light and accommodation. Conjunctivae are pink. NECK: He does have JVD to the level of the clavicle. CARDIOVASCULAR: Heart is irregularly irregular. There is no murmur or rub. CHEST: Clear. Symmetrical. Bilateral basilar crackles noted. ABDOMEN: Soft. Nontender. Mildly distended. Bowel sounds are present. BACK: No CVA tenderness with some sacral edema. EXTREMITIES: Patient does have +1 bilateral lower extremity edema, pitting. PSYCHIATRIC: Appropriate affect, pleasant mood. NEUROLOGIC: Intact. DIAGNOSTIC DATA: Lab values are as follows: CBC obtained on 06/26/2016: WBC's are 9.6, hemoglobin is 14.2, hematocrit is 40.8, platelet count is 302,000. IMPRESSION AND PLAN: 1. [place] ATRIAL FIBRILLATION WITH A-FLUTTER. The patient has been received in service of [facility]. Will continue Cardizem for now, although patient has been anticoagulated with Lovenox. The patient is prepared to undergo MARY with cardioversion. 2. HYPERTENSION. THE PATIENT'S BLOOD PRESSURES ARE IN A GOOD RANGE. Will continue current course. 3. ACUTE ON CHRONIC, MOST LIKELY SYSTOLIC, CONGESTIVE HEART FAILURE. THIS IS DUE TO THE PATIENT'S RAPID VENTRICULAR RESPONSE. THE PATIENT IS DIURESED WELL. Will continue current dosing and potassium has been replaced. 4. DIABETES MELLITUS TYPE 2. THE PATIENT'S BLOOD GLUCOSE HAS BEEN WELL CONTROLLED. Will continue current medications. DISPOSITION: The patient is a FULL CODE. Pending the patient's symptomatology and diagnostic findings, will reevaluate as needed. The patient is currently awaiting a bed at [facility]. I do agree with the transfer summary. I do appreciate Dr. Dallas for participating in the care of this patient. TIME SPENT: Time spent on this followup including assessment, plan, physical examination, patient education, and speciality collaboration was 35. minutes. DICTATING PHYSICIAN: EARL STEWART NP [id number] PHY#: [id number] ID: [id number] JOB#: [id number] ACCT: [id number] cc: > MTDD
[2016-06-27 07:59] LABS: HEMATOCRIT 39.8 % (37.9-51.0); HEMOGLOBIN 12.7 g/dL (13.5-17.0); HGB HCT DIFFERENCE -1.7; MEAN CORPUSCULAR HEMOGLOBIN 30.6 pg (27.0-33.4); MEAN CORPUSCULAR VOLUME 96 fl (80-97); RED BLOOD COUNT 4.15 10^6/uL (4.35-5.55); RED CELL DISTRIBUTION WIDTH 14.3 % (11.5-14.0); WHITE BLOOD COUNT 5.2 10^3/uL (4.0-10.5)
[2016-06-27 13:59] LABS: ALANINE AMINOTRANSFERASE 32 U/L (21-72); ALBUMIN 3.8 g/dL (3.5-5.0); ALKALINE PHOSPHATASE 143 U/L (38-126); ANION GAP 13 (5-19); ASPARTATE AMINO TRANSFERASE 33 U/L (17-59); BLOOD UREA NITROGEN 22 mg/dL (7-20); CALCIUM 9.4 mg/dL (8.4-10.2); CARBON DIOXIDE 26 mmol/L (22-30); CHLORIDE 106 mmol/L (98-107); CREATININE RESULT 0.98 mg/dL (0.52-1.25); GLUCOSE 106 mg/dL (75-110); POTASSIUM 3.8 mmol/L (3.6-5.0); SODIUM 144.9 mmol/L (137-145)
[2016-06-27 14:00] LABS: BILIRUBIN,DIRECT 0.8 mg/dL (0.0-0.4); BILIRUBIN,TOTAL 1.4 mg/dL (0.2-1.3); MAGNESIUM 1.8 mg/dL (1.6-2.3); TOTAL PROTEIN 6.7 g/dL (6.3-8.2)
== END 2016-06-26 10:35 | disposition short-term general hospital (02) | DRG 308 ==
LOC: ER 10:23 → UNDOADMIN 13:25 → EH 13:25 → UNDOADMIN 13:35 → EH 15:02 → UNDOADMIN 15:02 → 3S 16:04
DX: I48.91 Unspecified atrial fibrillation (principal); I50.21 Acute systolic (congestive) heart failure; I11.0 Hypertensive heart disease with heart failure; I48.92 Unspecified atrial flutter; I10 Essential (primary) hypertension; E11.9 Type 2 diabetes mellitus without complications; E78.5 Hyperlipidemia, unspecified; K21.9 Gastro-esophageal reflux disease without esophagitis; M19.90 Unspecified osteoarthritis, unspecified site; Z90.49 Acquired absence of other specified parts of digestive tract; Z87.891 Personal history of nicotine dependence; Z79.82 Long term (current) use of aspirin
CPT/HCPCS: 36415; 71275; 80048; 80053; 82550; 82553; 82962; 83735; 84443; 84484; 85025; 85027; 93005; 93010; 96365; 96366; 96376; 99291; J1160; J1650; J1940; J3490; J7030